=== PATIENT | female | born 1965 ===

== ENCOUNTER → 2020-07-09 08:52 | Outpatient (BNVA) | payer BC, MEDICARE, SELFPAY | PROVIDERS: Family Provider Family Medicine; PCP Family Medicine; Visit Provider Surgery | DX: Z11.59 Encounter for screening for other viral diseases (principal) | CPT/HCPCS: 87635 ==

== ENCOUNTER 2020-07-13 06:51 | Day surgery (SDC) | payer BC, MEDICARE, SELFPAY ==
[2020-07-08 09:27] VITALS: BMI 28.3
[2020-07-08 09:38] VITALS: BMI 28.3
[2020-07-13] VITALS (13 sets, daily range): BP systolic 107–144; BP diastolic 69–97; PULSE 62–93; RESP 18–20; TEMP 36.2–36.8; O2SAT 92–98
--- NOTE | 2020-07-13 07:18 | ANES.PREANE2 ---
Pre-Anesthetic Assessment Pre-Anesthetic Assessment: Height/Weight: Height 1.65 m Weight 77.111 kg Preop Diagnosis: Screening colonoscopy Proposed Procedure: Operation Date: 07/13/20 08:00 Proposed Procedures p Colonoscopy 27504 Z80.0 Z12.11(Not Applicable) - Aristides Horta MD Familial anesthetic complications: MOTHER HAD MALIGNANT HYPERTHERMIA - SO PATIENT HAS ALWAYS RECEIVED NONTRIGGERING ANESTHESTHETICS PONV Was Beta Jarad taken within 24 hours: Yes Last intake: npo > 8 HRS Social: Social History: No alcohol and No tobacco Exam: Pre-Anes Outpt Exam: alert, oriented x 3, clear to auscultation bilaterally and regular rate & rhythm Airway: Cervical ROM: WNL MP: 3 Dentition: Full Pulmonary: Pulmonary: Asthma CV/HEM: CV/HEM: HTN Metabolic: Metabolic: Hyperlipidemia Neuropsych: Neuropsych: Seizure (took keppra this morning) and TIA Comments: 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 Anesthetic Plan: ASA status: 2 Anesthesia: MAC Risk of > 500 ml blood loss (7ml/kg in children): No PFSH Anesthesia PFSH: Medical History Asthma Diverticulitis Glaucoma Hyperlipidemia Hypertension Kidney stones Migraines Oligodendroglioma Seizures TIA (transient ischemic attack) Surgical History H/O cataract extraction H/O craniotomy right temporal lobe H/O lithotripsy H/O lumpectomy bilateral History of orthopedic surgery right great toe, heals, crushed left hand, Family History Father Chronic kidney disease (CKD) Alcoholism Mother Bleeding disorder anemia Cancer colon cancer Stroke Anesthesia complication Sister Alcoholism Other Diabetes Hyperlipidemia Hypertension Migraines Psychiatric illness Social History Smoking and tobacco status: never smoked Alcohol intake: never Household members: spouse Marital status: Current occupational status: retired and disabled History of recent travel: No Data Anesthesia Cardiac Studies: No Data to Display
[2020-07-13] MEDS: sodium chloride 0.9% 1,000 ML 30 ML IV (07:27)
--- NOTE | 2020-07-13 07:59 | W.PM.OPSUD ---
Surgery/Procedure H&P Update DATE OF PROCEDURE: July 13, 2020 DATE H&P PERFORMED: 06/17/20 H&P UPDATE INFORMATION: I have reviewed H&P completed within last 30 days, I have examined patient prior to procedure and No changes to prior documentation PREOP DIAGNOSIS: Screening colonoscopy PLANNED PROCEDURE: Operation Date: 07/13/20 08:00 Proposed Procedures p Colonoscopy 48749 Z80.0 Z12.11(Not Applicable) - Aristides Horta MD
--- NOTE | 2020-07-13 08:38 | SUR.PHASEI ---
0854 patient to pacu from gi lab. rr even and unlabored. spo2 96% on nc at 3L. patient denies pain.
--- NOTE | 2020-07-13 10:10 | ANE.PACU2 ---
Inpatient post-anesthesia follow up: Airway intact: Yes Vital signs: Temperature 97.1 F Pulse Rate 93 Respiratory Rate 18 Blood Pressure 143/97 Pulse Oximetry 97 Oxygen Delivery Me thod Room Air Oxygen Flow Rate 3 Fraction of Inspir ed Oxygen Hydration adequate: Yes Nausea and vomiting: No Pain level: 1 Mental status: Baseline Additional Comments: Patient vomited stomach acid during her colonoscopy. Post op her lungs were clear, but she had some excess coughing. her O2 sats on room air remained 92% and higher for approximately 2 hours following the event. The event was explained to the patient and She was instructed to go to ER if she develops fever, chest pains, or Shortness of breath (i.e. signs of aspiration pneumonia).
== END 2020-07-13 10:14 | disposition home or self-care (01) ==
PROVIDERS: PCP Family Medicine; Visit Provider Surgery
PROC: 0DJD8ZZ Inspection of Lower Intestinal Tract, Via Natural or Artificial Opening Endoscopic (ICD-10-PCS; CPT 45378; principal; 2020-07-13 08:00)
DX: Z12.11 Encounter for screening for malignant neoplasm of colon (principal); K57.30 Diverticulosis of large intestine without perforation or abscess without bleeding; I10 Essential (primary) hypertension; E78.5 Hyperlipidemia, unspecified; Z86.73 Personal history of transient ischemic attack (TIA), and cerebral infarction without residual deficits; Z80.0 Family history of malignant neoplasm of digestive organs
CPT/HCPCS: 12345; 45378; J2704; J7030

== ENCOUNTER 2020-07-16 13:18 | Outpatient (CLI) | payer BC, MEDICARE, SELFPAY ==
--- NOTE | 2020-07-16 13:25 | XR_ITS ---
WS: [id number] CHEST 2 VIEWS HISTORY: WHEEZING, COUGH COMPARISON: 01/18/2016 Lungs: Linear atelectasis at the lingula. Otherwise lungs are clear and well aerated. No pleural effu laura or pneumothorax. Cardiac size: Normal. Mediastinum/Aorta: Normal mediastinum. Bones: Normal. XR/XR chest 2V* [id number] IMPRESSION: Minimal linear subsegmental lingular atelectasis.
== END 2020-07-16 13:19 | disposition home or self-care (01) ==
LOC: RADWPI 13:22
PROVIDERS: PCP Nurse Practitioner Family; Visit Provider Nurse Practitioner Family
DX: R06.2 Wheezing (principal); R05 Cough; J98.11 Atelectasis
CPT/HCPCS: 71046

== ENCOUNTER 2021-01-28 07:06 | Outpatient (CLI) | payer BC, MEDICARE, SELFPAY ==
[2021-01-28 06:57] VITALS: BP 121/78; PULSE 88; RESP 18; O2SAT 95
[2021-01-28 08:56] VITALS: BP 152/105; RESP 18; O2SAT 97
--- NOTE | 2021-01-28 10:43 | A.OFFVIS_ITS ---
Patient Information Referred by: 55 yo female presents for a monoclonal antibody infusion. She was diagnosed at [facility] a rapid Covid screen is scanned into the chart patient is within the 10 days of her onset of symptoms. Sats good not requiring more oxygen than her normal baseline. Discussed risks and benefits and alternatives of the bamlanivimab as well as the fact that is experimental. Patient wishes to proceed consent signed. [facility] COVID test results: Nasal/Oral Coronavirus 2019 PCR Negative 07/09/20 08:52 07/09/20 Criteria/Plan Inclusion/Exclusion Criteria weight >/= 40kg, + direct test </= 10 days ago and symptom onset </= 10 days ago BMI >/= 35, age >/= 55 and has hypertension and age >/= 55 and has COPD/lung diease not requiring hospitalization, not requiring oxygen (if not chronically on oxygen) and no increase oxygen requirement (if chronically on oxygen) Patient education patient/family/caregiver received/reviewed fact sheet, Emergency Use Authorization/unapproved drug status discussed with patient/family/caregiver, alternatives to this treatment discussed with patient/family/caregiver, risks and benefits of medication reviewed with patient/family/caregiver, patient/family/caregiver given opportunity for questions, which were answered and patient consents to receiving Monoclonal Antibody Treatment Plan for treatment Meets criteria for Monoclonal Antibody infusion Ordering Monoclonal Antibody infusion for today
== END 2021-01-28 10:15 | disposition home or self-care (01) ==
LOC: ER 07:06
PROVIDERS: Visit Provider Nurse Practitioner
DX: U07.1 COVID-19 (principal)

== ENCOUNTER 2021-04-29 09:31 | Outpatient (CLI) | payer BC, MEDICARE, SELFPAY ==
--- NOTE | 2021-04-29 09:42 | XR_ITS ---
WS: [id number] Chest 2 views, 04/29/2021 Clinical Data: STERNAL PAIN Comparison: PA and lateral chest, 07/16/2020. Findings: No nodules, masses or effusions are seen. The heart is normal. The pulmonary vascularity is not increased. No pneumonia or pneumothorax is seen. XR/XR chest 2V* [id number] Impression: Negative chest.
== END 2021-04-29 09:32 | disposition home or self-care (01) ==
LOC: RAD 09:39
PROVIDERS: PCP Nurse Practitioner Family; Visit Provider Nurse Practitioner Family
DX: R07.2 Precordial pain (principal)
CPT/HCPCS: 71046

== ENCOUNTER 2021-05-04 13:40 | Outpatient (CLI) | payer BC, MEDICARE, SELFPAY ==
--- NOTE | 2021-05-04 13:30 | XR_ITS ---
WS: [id number] KUB, AP view, 05/04/2021 Clinical Data: KIDNEY STONE Comparison: KUB, 01/29/2019. Findings: No abnormal intraabdominal masses or calcifications are seen. There is no dilatated small bowel or ev idence of obstruction. There is fecal material and gas which obscures some detail over both kidneys. There are phleboliths e specially on the left side of the true pelvis. XR/XR KUB [id number] Impression: Negative KUB.
== END 2021-05-04 13:41 | disposition home or self-care (01) ==
LOC: RAD 13:43
PROVIDERS: PCP Nurse Practitioner Family; Visit Provider Urology
DX: N20.0 Calculus of kidney (principal)
CPT/HCPCS: 74018; 81003; 87086

== ENCOUNTER 2021-10-14 07:46 | Outpatient (CLI) | payer BC, MEDICARE, SELFPAY ==
--- NOTE | 2021-10-14 08:33 | ECG_ITS ---
[facility] Test Date: 2021-10-14 Pat Name: Greer Nugent Department: Room: Gender: Female Tick Sewer: Melodie Scottn : 1965 Requested By: Lizzette Pearson Order Number: [id number] Marlyn MD: Srinivas Gifford M.D. Interpretive Statements NAME OF STUDY: LEXISCAN SESTAMIBI STRESS TEST INDICATION: [Dyspnea on Exertion, ] Procedure: At the baseline, the blood pressure was 147/95 mmHg with a heart rate of 57 bpm. The electrocardiogram showed sinus bradycardia, normal axis with normal ST and T's. The Lexiscan was infused over a period of 20 seconds. A total of 0.4 mg of Lexiscan was infused. The stress phase was continued for a total of 5 minutes. Heart rate was at the end of stress phase was 85 bpm and a blood pressure of 110/69 mmHg. The EKG at the peak infusion revealed since normal sinus rhythm with no significant ST-T wave changes. Sestamibi was injected 20 seconds after the Lexiscan infusion. Blood pressure at the end of recovery phase was 107/66 mmHg with a heart rate of 79 bpm. Conclusion: 1. Normal EKG response to Lexiscan infusion 2. No Lexiscan induced chest pain or cardiac arrhythmia. 3. Normal blood pressure and heart rate response. 4. Sestamibi/sestamibi perfusion scan pending; see separate report. Electronically Signed On 10-29-2021 12:50:49 WHITE [employer]GAR SUPERVISOR by Srinivas Gifford M.D. [id number]
[2021-10-14 08:34] VITALS: BMI 30.7
--- NOTE | 2021-10-14 08:34 | NMCV_ITS ---
NM hu perf SPECT r/s* [id number] Greer Nugent Age: 56 Gender: F : 1965 Exam Date: 10/14/2021 08:34 Ordering Phys: Lizzette Grijalva Technologist: NAVA Back Exam Location: [facility] Indications: DYSPNEA ON EXERTION STRESS TEST Please see separate stress test report in Ephiphany for full findings IMAGE PROTOCOL Rest/Stress 1 Lexiscan Day Radiopharmaceutical Dose (mCi) Administration Site Administered by Rest: Tc-99m 10.8 IV NAVA Lyn Sestamibi Stress:Tc-99m 32.3 IV NAVA Lyn Sestamibi Rest: 14-Oct-2021 60 Discovery 630 Stress: 14-Oct-2021 30 Discovery 630 0.4mg Lexiscan. Images obtained in supine and prone position. SPECT RESULTS Technical Quality: Excellent Raw Data Analysis: Normal Image Corrections: No attenuation or motion correction applied Summed Stress Score: 0 Summed Rest Score: 0 Summed Difference Score: 0 PERFUSION FINDINGS SPECT images demonstrate homogeneous tracer distribution throughout the myocardium. FUNCTIONAL RESULTS (calculated via Gated SPECT) Stress Image LV EF (%): 87 Stress EDV (mL):55 TID: 0.76 Stress ESV (mL):7 FUNCTIONAL FINDINGS: There is normal left ventricular systolic function. IMPRESSIONS 1. Normal myocardial perfusion imaging without evidence of ischemia 2. LV systolic function is normal Srinivas Gifford MD (Electronically Signed) Final Date: 14 October 2021 15:43 S
[2021-10-14 10:20] VITALS: BP 130/88; PULSE 76
[2021-10-14] MEDS: regadenoson 0.4 Mg/5 ml Syringe IVP (10:21)
== END 2021-10-14 07:47 | disposition home or self-care (01) ==
LOC: RAD 07:57 → CDL 08:33
PROVIDERS: PCP Nurse Practitioner Family; Visit Provider Nurse Practitioner Family
DX: R06.09 Other forms of dyspnea (principal); R06.02 Shortness of breath
CPT/HCPCS: 78452; 93017; A9500; J2785

== ENCOUNTER 2022-02-15 22:08 | Emergency (ER) | payer OTHER, MEDICARE, SELFPAY ==
[2022-02-15 22:13] VITALS: BP 176/92; PULSE 80; RESP 18; TEMP 36.4; O2SAT 98; BMI 31.6
--- NOTE | 2022-02-15 22:30 | ECG_ITS ---
[facility] Test Date: 2022-02-15 Pat Name: Greer Nugent Department: Room: Gender: Female Lime Spreader: : 1965 Requested By: Ryan Sam Order Number: [id number] Cline MD: Dunia Kearney M.D. Measurements Intervals Lyons Rate: 79 P: 23 PA: 187 QRS: -9 QRSD: 97 T: -3 QT: 365 QTc: 420 Interpretive Statements SINUS RHYTHM WITH OCCASIONAL VENTRICULAR PREMATURE COMPLEXES POSSIBLE RIGHT VENTRICULAR CONDUCTION DELAY [RSR (QR) IN V1/V2] VOLTAGE CRITERIA FOR LVH [MEETS CRITERIA IN ONE OF: R(aVL), S(V1), R(V5), R(V5/V6)+S(V1)] Compared to ECG 01/18/2016 18:55:39 Ventricular premature complex(es) now present Left ventricular hypertrophy now present Sinus tachycardia no longer present Myocardial infarct finding no longer present Electronically Signed On 02-15-2022 23:30:37 CDT by Dunia Kearney M.D. [id number]
--- NOTE | 2022-02-15 22:30 | XRR_ITS ---
PROCEDURE INFORMATION: Exam: XR Chest Exam date and time: 02/15/2022 10:44 PM Age: 57 years old Clinical indication: Chest wall pain; Additional info: Chest pain TECHNIQUE: Imaging protocol: XR of the chest. Views: 1 view. COMPARISON: CR XR chest 2V* [id number] 04/29/2021 9:51 AM FINDINGS: Lungs: Unremarkable. No consolidation. Pleural spaces: Unremarkable. No pleural effusion. No pneumothorax. Heart/Mediastinum: Unremarkable. No cardiomegaly. Bones/joints: Unremarkable. XR/XR chest 1V portable [id number] IMPRESSION: No acute findings.
--- NOTE | 2022-02-15 22:44 | ED_ITS ---
HPI - Chest Pain General: Chief Complaint: Chest Pain Stated Complaint: Chest Pains\Light Headed Time Seen by Provider: 02/15/22 22:44 History of Present Illness: 57-year-old female comes in today with episodes of chest discomfort. Patient has a mobile EKG after she is able to monitor her heart rhythm on her phone. Patient was noticed that she had some PVCs when she was having these episodes of discomfort. Review of patient's data from her phone it looks like she has multifocal PVCs occasional. Patient also has a family history where her father at the age of 42 from a sudden heart attack. Patient does have brain cancer, hypertension. Review of patient's record she had a stress test and imaging done in October 2021 that showed no abnormalities to the structure of the heart. Associated symptoms: Reports dyspnea and palpitations; Deny abdominal pain, nausea or vomiting Review of Systems General: Reports: 10 or more systems reviewed and unremarkable except in HPI and below Card: Reports: chest pain and palpitations Resp: Reports: dyspnea GI: Denies: abdominal pain, nausea or vomiting Skin/Breast: Denies: rash Psych: Reports: anxiety PFSH ED PFSH: Medical History Asthma Diverticulitis Glaucoma Hyperlipidemia Hypertension Kidney stones Migraines Oligodendroglioma Recurrent UTI Seizures TIA (transient ischemic attack) Surgical History H/O cataract extraction H/O craniotomy right temporal lobe H/O lithotripsy H/O lumpectomy bilateral History of orthopedic surgery right great toe, heals, crushed left hand, Status post colonoscopy (07/13/20) Family History Father Chronic kidney disease (CKD) Alcoholism Mother Bleeding disorder anemia Cancer colon cancer Stroke Anesthesia complication Sister Alcoholism Other Diabetes Hyperlipidemia Hypertension Migraines Psychiatric illness Social History Smoking and tobacco status: never smoked Alcohol intake: never Household members: spouse Marital status: Current occupational status: retired and disabled History of recent travel: No Physical Exam Const: COMMON NORMALS: alert HENMT: COMMON NORMALS: normocephalic HEAD & SCALP: normocephalic MOUTH: Normal oral and palatal mucosa present THROAT: posterior oropharynx normal Neck/C-Spine: COMMON NORMALS: full ROM Resp: COMMON NORMALS: normal respiratory effort and clear to auscultation bilaterally AUSCULTATION: clear to auscultation bilaterally Cardio: COMMON NORMALS: regular rate and regular rhythm RATE: regular rate RHYTHM: regular rhythm GI: COMMON NORMALS: Soft to palpation and non-tender PALPATION: Yes Soft to palpation Extremity: COMMON NORMALS: normal to inspection Neuro: SENSORIUM/ORIENTATION: Yes alert Psych: COMMON NORMALS: cooperative Skin: COMMON NORMALS: no rashes or lesions noted GENERAL SKIN EXAM: no rashes or lesions noted Course Vital Signs: Vital signs: Vital Signs Temperature 97.5 F L 02/15/22 22:13 Pulse Rate 80 02/15/22 22:13 Respiratory Rate 18 02/15/22 22:13 Blood Pressure 176/92 02/15/22 22:13 Pulse Oximetry 98 02/15/22 22:13 MDM - Chest Pain Medical Decision Making 57-year-old female comes in today with complaints of chest discomfort with PVCs. On exam patient had a regular heart rate with no auscultated PVCs over 30 seconds. EKG did show occasional PVCs. Respirations were even lungs were clear to auscultation. No edema was noted in the extremities. Vital signs did note some elevation of blood pressure to 170 systolic. Differential diagnosis includes not limited to CHF, anxiety, electrolyte imbalance. Laboratory values were unremarkable. TSH was normal magnesium was normal, sodium was 135, potassium was unremarkable. Chest x-ray was normal. Think PVCs are causing patient patient increased chest discomfort. We will have case management see if they can move patients cardiology appointment up from March or earlier. Reviewed exam with patient with recommendations for follow-up or return to the ER. Patient reported understanding. Lab Data : 02/15/22 22:54 02/15/22 22:54 Radiology Impressions Chest X-Ray 02/15/22 22:30 IMPRESSION: No acute findings. Laboratory Results WBC 12.0 10^3/uL (4.0-10.0) H 02/15/22 22:54 RBC 5.66 10^6/uL (4.1-5.3) H 02/15/22 22:54 Hgb 16.1 g/dL (11.5-15.3) H 02/15/22 22:54 Hct 48.3 % (37.0-47.0) H 02/15/22 22:54 MCV 85.3 fl (81-99) 02/15/22 22:54 MCH 28.4 pg (28.0-34.0) 02/15/22 22:54 MCHC 33.3 g/dL (30.0-36.0) 02/15/22 22:54 RDW 12.5 % (12.1-15.1) 02/15/22 22:54 Plt Count 291 10^3/cmm (130-400) 02/15/22 22:54 MPV 10.1 fL (7.4-10.4) 02/15/22 22:54 Neut % (Auto) 72.1 % 02/15/22 22:54 Lymph % (Auto) 22.0 % 02/15/22:54 [place] % (Auto) 4.8 % 02/15/22 22:54 Eos % (Auto) 0.4 % 02/15/22:54 Baso % (Auto) 0.3 % 02/15/22 22:54 Neut # (Auto) 8.65 10^3/uL (1.8-7.7) H 02/15/22 22:54 Lymph # (Auto) 2.6 10^3/uL (0.8-4.8) 02/15/22 22:54 [place] # (Auto) 0.6 10^3/uL (0.2-0.9) 02/15/22 22:54 Eos # (Auto) 0.1 10^3/uL (0.0-0.8) 02/15/22:54 Baso # (Auto) 0.0 10^3/uL (0.0-0.1) 02/15/22:54 Nucleated RBC % (auto) 0 % 02/15/22: Nucleated RBCs # 0.0 /100WBC 02/15/22:54 D-Dimer 0.21 ug/mIFEU (0-0.59) 02/15/22 23:03 Sodium 135 mmol/L (136-145) L 02/15/22 22:54 Potassium 3.7 mmol/L (3.5-5.1) 02/15/22 22:54 Chloride 96 mmol/L (98-107) L 02/15/22 22:54 Carbon Dioxide 25 mmol/L (22-29) 02/15/22 22:54 Anion Gap 17.7 (5-19) 02/15/22 22:54 BUN 33 mg/dL (6-20) H 02/15/22 22:54 Creatinine 0.7 mg/dL (0.5-0.9) 02/15/22 22:54 GFR Calculation 85.9 mL/min (90-130) L 02/15/22 22:54 Glucose 177 mg/dL (65-115) H 02/15/22 22:54 Calculated Osmolality 292 mOsm/kg (285-295) 02/15/22 22:54 Calcium 10.0 mg/dL (8.5-10.5) 02/15/22 22:54 Magnesium 2.2 mg/dL (1.7-2.3) 02/15/22 22:54 Total Bilirubin 0.2 mg/dL (0.15-1.2) 02/15/22 22:54 AST 14 U/L (0-32) 02/15/22 22:54 ALT 25 U/L (0-33) 02/15/22 22:54 Alkaline Phosphatase 170 IU/L (35-105) H 02/15/22 22:54 Troponin T Baseline 6 ng/L (0-10) 02/15/22 22:54 NT-Pro-B Natriuret Pep 70 pg/mL (0-125) 02/15/22 22:54 Total Protein 7.1 g/dL (6.6-8.7) 02/15/22 22:54 Albumin 4.6 g/dL (3.5-5.2) 02/15/22 22:54 Globulin 2.5 g/dL (1.3-4.6) 02/15/22 22:54 Lipase 37 U/L (13-60) 02/15/22 22:54 TSH 1.52 uIU/mL (0.27-4.20) 02/15/22 22:54 EKG Data EKG 1: EKG interpretation date: 02/15/22 EKG interpretation time: 22:59 Interpretation: EKG shows sinus rhythm with occasional PVCs. Regular rate at [address] elevation is noted. No prior exam was available for comparison at this time. Discharge Plan Discharge Patient Disposition: Home Clinical Impression: Symptomatic PVCs Condition: Stable Prescriptions: New lorazepam 0.5 mg tablet 0.25 mg PO Q8H PRN (Reason: pvc's, anxiety) Qty: 10 0RF No Action atenolol 50 mg tablet 50 mg PO BID 0RF ibuprofen 800 mg tablet 800 mg PO TID 0RF methocarbamol 750 mg tablet 750 mg PO QID PRN (Reason: Seizures) 0RF hydrochlorothiazide 25 mg tablet 25 mg PO DAILY 0RF levetiracetam 1,000 mg tablet 1,000 mg PO BID 0RF potassium chloride 10 mEq capsule, extended release 10 meq PO BID 0RF albuterol sulfate [ProAir HFA] 90 mcg/actuation HFA aerosol inhaler 2 puff INHALATION Q6H PRN (Reason: Shortness Of Breath) 0RF meloxicam 15 mg tablet 15 mg PO EVERY OTHER DAY 0RF triamcinolone acetonide 0.025 % cream 1 applic TOPICAL BID PRN (Reason: Rash) 0RF lisinopril 10 mg tablet 10 mg PO DAILY 0RF acyclovir 800 mg tablet 800 mg PO .five times a day PRN (Reason: Unobtainable) 0RF Discharge Orders: Discharge ED (Routine); Ordered 02/15/22 Ordered By: Ryan Cohen Referrals: Ozzy Tavarez NP [Primary Care Provider] - Discharge Diet: Usual diet Discharge Activity: Increase activity as tolerated Patient Instructions: Premature Ventricular Contractions (ED) Activity Restrictions/Additional Instructions: Home and rest. Drink plenty of fluids. Continue with routine medications as directed. Case management will contact you about follow-up appointment with cardiology. Return to ER for worsening symptoms or new concerns. Coding Level of Care Code ED Director Of Application Development for Lele Fwarleth Exam Comprehensive
[2022-02-15 23:11] LABS: Basophils % 0.3 %; Eosinophils # 0.1 10^3/uL (0.0-0.8); Eosinophils % 0.4 %; Hematocrit 48.3 % (37.0-47.0); Hemoglobin 16.1 g/dL (11.5-15.3); Lymphocytes # 2.6 10^3/uL (0.8-4.8); Mean Corpuscular HGB Conc 33.3 g/dL (30.0-36.0); Mean Corpuscular Hemoglobin 28.4 pg (28.0-34.0); Mean Corpuscular Volume 85.3 fl (81-99); Mean Platelet Volume 10.1 fL (7.4-10.4); Monocytes # 0.6 10^3/uL (0.2-0.9); Monocytes % 4.8 %; Neutrophils # 8.65 10^3/uL (1.8-7.7); Neutrophils % 72.1 %; Nucleated Red Blood Cells % 0 %; Platelet Count 291 10^3/cmm (130-400); Red Blood Count 5.66 10^6/uL (4.1-5.3); Red Cell Distribution Width 12.5 % (12.1-15.1)
[2022-02-15 23:33] LABS: Troponin(5th) Baseline 6 ng/L (0-10)
[2022-02-15] MEDS: LORazepam 0.5 mg Tablet PO (23:35)
[2022-02-15 23:40] LABS: Alanine Aminotransferase 25 U/L (0-33); Albumin Level 4.6 g/dL (3.5-5.2); Alkaline Phosphatase 170 IU/L (35-105); Anion Gap 17.7 (5-19); Aspartate Amino Transferase 14 U/L (0-32); Blood Urea Nitrogen 33 mg/dL (6-20); Carbon Dioxide 25 mmol/L (22-29); Chloride 96 mmol/L (98-107); Globulin 2.5 g/dL (1.3-4.6); Glomerular Filtration Rate 85.9 mL/min (90-130); Glucose 177 mg/dL (65-115); Lipase 37 U/L (13-60); Magnesium 2.2 mg/dL (1.7-2.3); NT Pro B Type Natriuretic Pept 70 pg/mL (0-125); Osmolality Calculated 292 mOsm/kg (285-295); Potassium 3.7 mmol/L (3.5-5.1); Sodium 135 mmol/L (136-145); Thyroid Stimulating Hormone 1.52 uIU/mL (0.27-4.20); Total Bilirubin 0.2 mg/dL (0.15-1.2); Total Protein 7.1 g/dL (6.6-8.7)
[2022-02-15 23:41] LABS: D Dimer 0.21 ug/mIFEU (0-0.59)
[2022-02-15 23:55] LABS: Add Urine Culture? No; Add Urine Microscopic? YES; Bacteria Urine TRACE /hpf; Bilirubin Urine Neg (Negative); Blood Urine 2+ (Negative); Glucose Urine UA Norm (Normal); Ketones Urine Negative (Negative); Leukocyte Esterase Urine Negative (Negative); Nitrate Urine Negative (Negative); Protein Urine Neg (Negative); RBC Urine 0-4 /hpf (0-2); Squamous Epithelial Cell Urine 0-4 /hpf (0-5); Urine Appearance Clear (CLEAR); Urine Color Yellow (Yellow); Urobilinogen Urine Norm (Negative); WBC Urine 0-4 /hpf (0-5); pH Urine 5 (5-7)
[2022-02-16 00:01] VITALS: BP 162/110; PULSE 65; RESP 18; TEMP 36.6; O2SAT 96
--- NOTE | 2022-02-17 11:45 | DCPLANNER ---
Addendum entered by Juju Lind 03/31/22 17:14: Patient had a follow up appointment scheduled for 03.30.22 with [facility] - patient did attend appointment. Addendum entered by Juju Lind 02/21/22 15:01: Patient has a follow up appointment scheduled for March at 1:[address] Andrea at [facility]. merchandise team manager called and spoke with patients , gave him the appointment information. Original Note: merchandise team manager had message to schedule a follow up appointment for patient with [facility] care. merchandise team manager sent patients information to the front staff at [facility] for review. Patients information will be printed and reviewed. Clinic will notify case resource manager with appointment information. merchandise team manager will call patient with appointment information.
== END 2022-02-16 00:02 | disposition home or self-care (01) ==
PROVIDERS: Emergency Provider Nurse Practitioner Family; PCP Nurse Practitioner Family
DX: I49.3 Ventricular premature depolarization (principal)
CPT/HCPCS: 71045; 80053; 81001; 83690; 83735; 83880; 84443; 84484; 85025; 85378; 93005; 99283

== ENCOUNTER → 2022-03-30 13:09 | Outpatient (BNVA) | payer OTHER, MEDICARE, SELFPAY | PROVIDERS: PCP Family Medicine; Visit Provider Internal Medicine Cardiovascular Disease | DX: I49.3 Ventricular premature depolarization (principal); R55 Syncope and collapse; I10 Essential (primary) hypertension; R56.9 Unspecified convulsions; C71.9 Malignant neoplasm of brain, unspecified; R00.2 Palpitations; R06.02 Shortness of breath | CPT/HCPCS: 93229; 99204 ==

== ENCOUNTER 2022-05-05 10:14 | Outpatient (CLI) | payer OTHER, MEDICARE, SELFPAY ==
--- NOTE | 2022-05-05 11:15 | USCV_ITS ---
Greer Nugent Age: 57 Gender: F : 1965 Exam Date: 05/05/2022 10:38 Ordering Phys: Cheri Andrea MD ([email or web address]) Technologist: Exam Location: [facility] Indication: HIGH RISK MEDS BP: 130 / 83 HR: 85 Rhythm: Sinus Technical Quality: Adequate MEASUREMENTS (Male / Female) Normal Values 2D ECHO LV Diastolic Diameter PLAX 3.2 cm 4.2 - 5.9 / 3.9 - 5.3 cm LV Systolic Diameter PLAX 2.3 cm IVS Diastolic Thickness 1.0 cm 0.6 - 1.0 / 0.6 - 0.9 cm IVS Systolic Thickness 1.2 cm LVPW Diastolic Thickness 1.2 cm 0.6 - 1.0 / 0.6 - 0.9 cm LVPW Systolic Thickness 1.2 cm LVOT Diameter 2.0 cm LV Ejection Fraction 2D Teich 57.6 % LA Diameter 4.0 cm Aorta at Sinotubular Diameter 2.8 cm IVC Diameter 1.8 cm M-MODE LV Diastolic Diameter MM 3.6 cm 4.2 - 5.9 / 3.9 - 5.3 cm LV Systolic Diameter MM 2.1 cm LV Ejection Fraction MM Teich 75.3 % IVS Diastolic Thickness MM 1.1 cm 0.6 - 1.0 / 0.6 - 0.9 cm IVS Systolic Thickness MM 1.6 cm LVPW Diastolic Thickness MM 1.1 cm 0.6 - 1.0 / 0.6 - 0.9 cm LVPW Systolic Thickness MM 1.6 cm RV Diastolic Diameter MM 1.5 cm Aortic Annulus Diameter 3.5 cm LA Ao Ratio MM 1.3 MV E Point Septal Separation 0.9 cm DOPPLER AV Peak Velocity 172.0 cm/s LVOT Peak Velocity 150.0 cm/s AV Area Cont Eq vti 2.7 cm squared AV Area Cont Eq pk 2.9 cm squared MV Area PHT 5.2 cm squared Mitral E to A Ratio 0.7 MV E' Velocity 38.0 cm/s Mitral E to MV E' Ratio 7.3 Mitral E to LV E' Lateral Ratio 6.7 Mitral E to LV E' Septal Ratio 8.1 TR Peak Velocity 168.0 cm/s TR Peak Gradient 11.3 mmHg PV Peak Velocity 104.0 cm/s FINDINGS Left Ventricle Normal left ventricular size, systolic function and wall thickness, with no regional wall motion abnormalities. Left ventricular ejection fraction is estimated at 73 %. Normal diastolic function. Right Ventricle Normal right ventricular size and systolic function. Normal right ventricular systolic pressure. Right Atrium Normal right atrial size. Left Atrium Normal left atrial size. Mitral Valve Structurally normal mitral valve. No mitral valve stenosis. Trace mitral valve regurgitation. Aortic Valve Structurally normal trileaflet aortic valve. No aortic valve stenosis. No aortic valve regurgitation. Tricuspid Valve Structurally normal tricuspid valve. No tricuspid valve stenosis. Trace to mild tricuspid valve regurgitation. Pulmonic Valve Structurally normal pulmonic valve. No pulmonary valve stenosis. No pulmonary valve regurgitation. Pericardium No pericardial effusion. Aorta Normal size aortic root and proximal ascending aorta. IVC Normal IVC dimension with >50% respiratory change of the inferior vena cava. CONCLUSIONS 1. Normal left ventricular size, systolic function and wall thickness, with no regional wall motion abnormalities. Left ventricular ejection fraction is estimated at 73 %. Normal diastolic function. 2. Normal right ventricular size and systolic function. 3. Trace to mild tricuspid valve regurgitation. 4. No prior similar studies to compare. Cheri Andrea MD (Electronically Signed) Final Date: 09 May 2022 10:36 S
== END 2022-05-05 10:15 | disposition home or self-care (01) ==
LOC: RAD 10:15
PROVIDERS: PCP Family Medicine; Visit Provider Internal Medicine Cardiovascular Disease
DX: R06.02 Shortness of breath (principal); I49.3 Ventricular premature depolarization; R55 Syncope and collapse; R00.2 Palpitations
CPT/HCPCS: 93306

== ENCOUNTER → 2022-06-01 13:33 | Outpatient (BNVA) | payer OTHER, MEDICARE, SELFPAY | PROVIDERS: PCP Family Medicine; Visit Provider Internal Medicine Cardiovascular Disease | DX: R00.2 Palpitations (principal); I49.3 Ventricular premature depolarization; R55 Syncope and collapse; I10 Essential (primary) hypertension | CPT/HCPCS: 99213; 99214 ==

== ENCOUNTER 2022-07-21 11:40 | Outpatient (CLI) | payer OTHER, MEDICARE, SELFPAY ==
--- NOTE | 2022-07-21 12:09 | XR_ITS ---
WS: [id number] Right ankle, AP and lateral views, 07/21/2022 Clinical Data: R ANKLE JOINT PAIN Comparison: None. Findings: No fractures or dislocations are seen. The ankle mortise is normal. The talus and calcaneus are unrem arkable. No soft tissue swelling over the medial or lateral malleolus is seen. There is a small plantar spur. XR/XR ankle RT 2V [id number] Impression: Negative right ankle.
== END 2022-07-21 11:41 | disposition home or self-care (01) ==
LOC: RAD 12:01
PROVIDERS: PCP Family Medicine; Visit Provider Family Medicine
DX: M25.571 Pain in right ankle and joints of right foot (principal)
CPT/HCPCS: 73600

== ENCOUNTER → 2023-05-05 10:24 | Outpatient (BNVA) | payer OTHER, MEDICARE, SELFPAY | PROVIDERS: PCP Family Medicine; Visit Provider Nurse Practitioner Family | DX: J02.9 Acute pharyngitis, unspecified (principal); J06.9 Acute upper respiratory infection, unspecified | CPT/HCPCS: 87071; 87880 ==

== ENCOUNTER 2023-10-26 08:32 | Outpatient (CLI) | payer OTHER, MEDICARE, SELFPAY ==
--- NOTE | 2023-10-26 08:40 | MR_ITS ---
WS: [id number] MRI LUMBAR SPINE WITH AND WITHOUT CONTRAST HISTORY: Personal history of benign neoplasm COMPARISON: None available. TECHNIQUE: Sagittal and axial multisequence imaging is submitted. Post contrast MultiHance 19 mL IV. Normal lumbar alignment with no compression fractures or marrow edema. Disc spaces and vertebral body heights are well-preserved. Conus terminates normally at L1-2 disc level. L1-L2: Normal. L2-L3: Mild annular disc bulging. Mild ligamentum flavum hypertrophy. No stenosis. L3-L4: Mild annular disc bulging. Small amount of fluid in the facet joints. No stenosis. L4-L5: Moderate facet joint arthritis and fluid in the facet joints. Ligamentum flavum hypertrophy. S lightly greater facet disease on the LEFT. Mild annular disc bulging encroaching upon the ventral the pasquale sac. Mild subarticular recess encroachment. L5-S1: Mild asymmetric disc bulging. RIGHT paracentral disc protrusion contacts the RIGHT S1 nerve ro ot. Very mild RIGHT foraminal stenosis. Postcontrast images are negative. No enhancing masses. Simple RIGHT renal cyst 2.6 cm. Mild facet hector nt synovitis at L3-4. 6 mm sebaceous cyst posterior to L3. IMPRESSION: 1. No enhancing masses. 2. RIGHT paracentral disc protrusion at L5-S1 contacts the RIGHT S1 nerve root. Very minimal RIGHT fo raminal narrowing. 3. L4-5: Mild subarticular recess encroachment by disc bulging. 4. Simple cyst RIGHT kidney. 5. Mild facet joint synovitis at L3-4.
[2023-10-26] MEDS: gadobenate dimeglumine 20 mL vial IV (09:57)
== END 2023-10-26 08:33 | disposition home or self-care (01) ==
LOC: RAD 08:33
PROVIDERS: PCP Family Medicine; Visit Provider Family Medicine
DX: Z86.011 Personal history of benign neoplasm of the brain (principal); R20.0 Anesthesia of skin; M79.604 Pain in right leg; M51.27 Other intervertebral disc displacement, lumbosacral region; M51.36 Other intervertebral disc degeneration, lumbar region; M65.88 Other synovitis and tenosynovitis, other site
CPT/HCPCS: 72158; A9577

== ENCOUNTER 2024-04-03 12:39 | Outpatient (CLI) | payer MEDICARE, OTHER, SELFPAY ==
--- NOTE | 2024-04-03 12:48 | CTR_ITS ---
PROCEDURE INFORMATION: Exam: CT Abdomen And Pelvis With Contrast Exam date and time: 04/03/2024 12:56 PM Age: 59 years old Clinical indication: Abdominal pain; Localized; Left lower quadrant (llq); Patient HX: Llq pain x 1 week, HX of diverticuli; Additional info: Llq abdominal pain TECHNIQUE: Imaging protocol: Computed tomography of the abdomen and pelvis with contrast. Radiation optimization: All CT scans at this facility use at least one of these dose optimization techniques: automated exposure control; mA and/or kV adjustment per patient size (includes targeted exams where dose is matched to clinical indication); or iterative reconstruction. Contrast material: OMNIPAQUE 350; Contrast volume: 100 ml; Contrast route: INTRAVENOUS (IV); COMPARISON: CR XR KUB [id number] 05/04/2021 1:51 PM RADIATION DOSE METRICS: Total DLP (mGy-cm): 770 FINDINGS: Lungs: Lung bases are clear. Liver: The liver is normal. Gallbladder and bile ducts: Cholelithiasis is present. There is no sign of cholecystitis. There is no intrahepatic or extrahepatic bile duct dilation. Pancreas: There is mild atrophy of the pancreas. Spleen: The spleen is unremarkable. Adrenal glands: The adrenal glands are unremarkable. Kidneys and ureters: There is an 18 mm simple right renal cyst at the lower pole. There is no hydronephrosis or stones. The left kidney and ureter are unremarkable. Stomach and bowel: The stomach is nondistended, limiting assessment of wall thickness. The small bowel is nondilated. There is pancolonic diverticulosis. There is focal diverticular inflammation in the proximal sigmoid visible on axial series 3, image 73. There is proximal sigmoid pericolonic edema and mild circumferential mucosal thickening. There is no colonic extraluminal gas or pericolonic fluid collection. Appendix: The appendix is not visible. Intraperitoneal space: There is no free air or significant intraperitoneal free fluid. Vasculature: The aorta is unremarkable. There is no aneurysm. The portal, splenic and superior mesenteric veins are patent. Lymph nodes: There is no lymphadenopathy in the retroperitoneum, mesentery, pelvis or inguinal regions. Urinary bladder: The urinary bladder is nondistended, limiting assessment of wall thickness. Reproductive: The uterus is unremarkable. There is no adnexal mass or large cyst. Bones/joints: There is mild degenerative disease in the lumbar spine. The pelvis and hips are unremarkable. Soft tissues: The abdominal wall is intact. CT/CT abdomen pelvis w con* [id number] IMPRESSION: 1. Uncomplicated proximal sigmoid diverticulitis. 2. Pancolonic diverticulosis. 3. Incidental findings above. COMMENTS: Consistent with the [employer]'s Incidental Findings Committee white paper (J Am Maria Alejandra Radiol 2018): Any incidental renal lesion less than 1 cm or classified as too small to characterize, or any incidental cystic renal lesion characterized as simple-appearing, is likely benign. No follow-up imaging is recommended for these lesions per consensus recommendations based on imaging criteria.
[2024-04-03] MEDS: iohexol 350 mg/mL 500 mL Btl (per mL) IV (13:01)
== END 2024-04-03 12:40 | disposition home or self-care (01) ==
LOC: RAD 12:40
PROVIDERS: PCP Family Medicine; Visit Provider Nurse Practitioner Family
DX: K57.32 Diverticulitis of large intestine without perforation or abscess without bleeding (principal); K57.30 Diverticulosis of large intestine without perforation or abscess without bleeding
CPT/HCPCS: 74177; Q9967

== ENCOUNTER → 2024-07-22 16:32 | Outpatient (BNVA) | payer MEDICARE, OTHER, SELFPAY | PROVIDERS: PCP Family Medicine | DX: R05.9 Cough, unspecified (principal) | CPT/HCPCS: 87400; 87426 ==

== ENCOUNTER 2024-10-10 11:53 | Outpatient (CLI) | payer MEDICARE, OTHER, SELFPAY ==
--- NOTE | 2024-10-10 12:00 | US_ITS ---
WS: [id number] RIGHT UPPER QUADRANT ULTRASOUND HISTORY: EPIGASTRIC ABDOMINAL PAIN/CHOLELITHIASIS COMPARISON: 04/03/2024 Liver: 15.9 cm in length. Mild coarse echotexture within the liver. No mass or bile duct dilatation. Portal Vein: Normal hepatopetal flow with monophasic waveform. Gallbladder: Slightly contracted gallbladder with numerous stones. No pericholecystic fluid. CBD: 0.3 cm Pancreas: Completely obscured by bowel gas. Right kidney: 11.1 cm in length. Normal size kidney. Exophytic cyst from the lower pole measures 2.3 x 2.3 x 2.6 cm. No obstruction. No solid mass. Aorta and IVC: Unremarkable abdominal aorta and IVC. No ascites. US/US abdomen limited [id number] IMPRESSION: 1. Cholelithiasis without acute cholecystitis. 2. No bile duct dilatation. 3. Simple cyst lower pole RIGHT kidney.
== END 2024-10-10 11:54 | disposition home or self-care (01) ==
LOC: RAD 11:57
PROVIDERS: PCP Family Medicine; Visit Provider Family Medicine
DX: K80.20 Calculus of gallbladder without cholecystitis without obstruction (principal); N28.1 Cyst of kidney, acquired
CPT/HCPCS: 76705

== ENCOUNTER 2024-10-30 07:53 | Outpatient (CLI) | payer OTHER, MEDICARE, SELFPAY ==
--- NOTE | 2024-10-30 08:09 | NM_ITS ---
WS: [id number] NUCLEAR MEDICINE HIDA SCAN HISTORY: CHOLELITHIASIS, ABDOMINAL PAIN COMPARISON: 10/10/2024 TECHNIQUE: The patient was intravenously injected with 7.6 mCi of TC99m Mebrofenin. Immediate imaging over the right upper quadrant was followed by 5 minute image and additional images for a total of 90 minutes. Normal uptake of radiotracer throughout the liver. Activity is noted in the liver, common bile duct and small bowel by 15 minutes. There is a very tiny area of increasing radionuclide uptake adjacent to the common bile duct which may be the gallbladder but does not distend very well. As the patient was having discomfort during this examination gallblad marry ejection fraction was not performed as not certain this is actually the gallbladder. NM/NM hepatobiliary w phar* [id number] IMPRESSION: 1. No common bile duct obstruction. 2. Gallbladder is not definitely identified. There is a tiny collection of rad ionuclide adjacent to the common bile duct which is probably the gallbladder bu t does not distend well at all. Patient is having discomfort during this examin ation. As I cannot confirm this is the gallbladder gallbladder ejection fractio n will not be performed. Gallbladder may not be distensible due to the large am ount of stones in the gallbladder. Surgical evaluation is recommended.
== END 2024-10-30 07:54 | disposition home or self-care (01) ==
PROVIDERS: PCP Family Medicine; Visit Provider Family Medicine
DX: K80.20 Calculus of gallbladder without cholecystitis without obstruction (principal); R10.13 Epigastric pain
CPT/HCPCS: 78227; A9537

== ENCOUNTER 2025-02-06 19:31 | Emergency (ER) | payer OTHER, MEDICARE, SELFPAY ==
[2025-02-06 19:37] VITALS: BP 150/98; PULSE 80; RESP 16; TEMP 37.3; O2SAT 97
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
[2025-02-06 20:38] LABS: Basophils % 0.1 %; Eosinophils # 0.1 10^3/uL (0.0-0.8); Eosinophils % 1.5 %; Hematocrit 38.6 % (36-47); Lymphocytes % 26.4 %; Mean Corpuscular HGB Conc 33.2 g/dL (30-55); Mean Corpuscular Hemoglobin 30.4 pg (27-33); Mean Corpuscular Volume 91.7 fl (85-98); Monocytes # 0.5 10^3/uL (0.2-0.9); Monocytes % 6.2 %; Neutrophils # 4.89 10^3/uL (1.8-7.7); Neutrophils % 65.5 %; Nucleated Red Blood Cells % 0 %; Platelet Count 275 10^3/cmm (157-399); Red Blood Count 4.21 10^6/uL (3.85-5.65); Red Cell Distribution Width 12.4 % (12.1-15.1); White Blood Count 7.46 10^3/uL (3.29-11.43)
--- NOTE | 2025-02-06 20:51 | XRR_ITS ---
PROCEDURE INFORMATION: Exam: XR Chest Exam date and time: 02/06/2025 8:53 PM Age: 60 years old Clinical indication: Pain; Chest pressure; Additional info: Cp TECHNIQUE: Imaging protocol: Radiologic exam of the chest. Views: 1 view. COMPARISON: CR XR chest 1V portable [id number] 02/15/2022 10:44 PM FINDINGS: Lungs: Unremarkable. No consolidation. Pleural spaces: Unremarkable. No pleural effusion. No pneumothorax. Heart/Mediastinum: Unremarkable. No cardiomegaly. Bones/joints: Unremarkable. XR/XR chest 1V portable [id number] IMPRESSION: No acute findings.
[2025-02-06 20:59] LABS: Anion Gap 15.9 (5-19); Blood Urea Nitrogen 21 mg/dL (8-23); Calcium 9.5 mg/dL (8.5-10.5); Carbon Dioxide 24 mmol/L (22-29); Chloride 103 mmol/L (98-107); Creatine Phosphokinase 47 U/L (26-192); Creatinine Clr Calc Pharmacy 128.0946; Glomerular Filtration Rate 125.4 mL/min (90-130); Glucose 94 mg/dL (65-115); Osmolality Calculated 291 mOsm/kg (285-295); Potassium 3.9 mmol/L (3.5-5.1); Sodium 139 mmol/L (136-145); Troponin(5th) Baseline < 6 ng/L (0-10)
[2025-02-06 21:03] VITALS: BP 151/91; PULSE 76; RESP 19; O2SAT 92
[2025-02-06 21:16] LABS: Add Urine Microscopic? NO
[2025-02-06 21:21] VITALS: BP 164/91; PULSE 66; RESP 14; O2SAT 97
[2025-02-06 21:31] LABS: Bilirubin Urine Neg (Negative); Blood Urine Neg (Negative); Charge for UA Resulting for Rev; Glucose Urine UA Norm (Normal); Ketones Urine Negative (Negative); Leukocyte Esterase Urine Negative (Negative); Nitrate Urine Negative (Negative); Protein Urine Neg (Negative); Urine Appearance Clear (CLEAR); Urine Color Yellow (Yellow); Urobilinogen Urine Norm (Negative); pH Urine 5 (5-7)
== END 2025-02-06 22:27 | disposition home or self-care (01) ==
PROVIDERS: Emergency Provider Emergency Medicine; PCP Family Medicine
DX: T75.00XA Unspecified effects of lightning, initial encounter (principal); I10 Essential (primary) hypertension; Z86.73 Personal history of transient ischemic attack (TIA), and cerebral infarction without residual deficits; E78.5 Hyperlipidemia, unspecified; Z85.841 Personal history of malignant neoplasm of brain; X58.XXXA Exposure to other specified factors, initial encounter
CPT/HCPCS: 36415; 70450; 71045; 80048; 81003; 82550; 84484; 85025; 93005; 99285

== ENCOUNTER 2025-02-13 14:10 | Outpatient (CLI) | payer OTHER, MEDICARE, SELFPAY ==
--- NOTE | 2025-02-13 14:20 | XR_ITS ---
WS: [id number] Exam: XR pelvis min 3V [id number] Date/Time of Exam: 02/13/2025 2:26 PM Reason For Exam: ACUTE PELVIC PAIN No fracture or bone destruction. Mild DJD of the SI joints and LEFT hip. Soft tissues are unremarkable. XR/XR pelvis min 3V [id number] IMPRESSION: 1. No fracture. Degenerative changes as above.
--- NOTE | 2025-02-13 14:20 | XR_ITS ---
WS: [id number] Exam: [place] [id number] Date/Time of Exam: 02/13/2025 2:26 PM Reason For Exam: R ARM PAIN No fracture. Articular relationships at the shoulder and elbow are intact. Normal soft tissues. XR/[place] [id number] IMPRESSION: 1. Negative RIGHT humerus.
--- NOTE | 2025-02-13 14:20 | XR_ITS ---
WS: [id number] Exam: XR shoulder RT min 2V* [id number] Date/Time of Exam: 02/13/2025 2:26 PM Reason For Exam: R SHOULDER JOINT PAIN No fracture. The glenohumeral joint is preserved. 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 Normal soft tissues. XR/XR shoulder RT min 2V* [id number] IMPRESSION: 1. Mild AC joint DJD.
== END 2025-02-13 14:11 | disposition home or self-care (01) ==
LOC: RAD 14:14
PROVIDERS: PCP Family Medicine; Visit Provider Family Medicine
DX: R10.2 Pelvic and perineal pain (principal); M19.011 Primary osteoarthritis, right shoulder; M46.1 Sacroiliitis, not elsewhere classified; M16.12 Unilateral primary osteoarthritis, left hip
CPT/HCPCS: 72190; 73030; 73060

== ENCOUNTER 2025-08-12 18:17 | Outpatient (CLI) | payer OTHER, MEDICARE, SELFPAY ==
--- NOTE | 2025-08-12 18:26 | XRR_ITS ---
PROCEDURE INFORMATION: Exam: XR Right Knee Exam date and time: 08/12/2025 6:30 PM Age: 60 years old Clinical indication: Injury or trauma; Fall; Sprain or strain; Patella or knee; Right; Additional info: Twisted and now acute pain to tibial plateau and medial join TECHNIQUE: Imaging protocol: Radiologic exam of the right knee. Views: 3 views. COMPARISON: CR XR ankle RT 2V [id number] 07/21/2022 12:13 PM FINDINGS: Bones/joints: Normal. Soft tissues: Normal. XR/XR knee RT 3V* [id number] IMPRESSION: No acute findings.
== END 2025-08-12 18:18 | disposition home or self-care (01) ==
PROVIDERS: PCP Family Medicine; Visit Provider Emergency Medicine
DX: S89.91XA Unspecified injury of right lower leg, initial encounter (principal); X58.XXXA Exposure to other specified factors, initial encounter
CPT/HCPCS: 73562